=== PATIENT | male | born 1990 | race Caucasian/White ===

== ENCOUNTER 2022-07-09 11:09 | Outpatient (REF) | payer OTHER, SELFPAY ==
[2022-07-09 11:29] LABS: RBC Synovial Fluid 0.002 X10*6/uL
[2022-07-09 12:29] LABS: BF Shift QC OK YES; Lymphocytes Synovial Fluid 1 %; Monocytes Synovial Fluid 1 %; Neutrophils Synovial Fluid 98 %; Source Synovial Fluid RIGHT KNEE
[2022-07-09 23:54] LABS: Glucose Synovial Fluid 55 MG/DL
[2022-07-12 17:37] LABS: Lyme PCR Source SYNOVIAL FLUID; Lyme Synovial Fluid PCR NOT DETECTED (NOT DETECTED)
== END 2022-07-09 11:10 | disposition home or self-care (01) ==
LOC: HO.LNP 11:09
PROVIDERS: Visit Provider Student in an Organized Health Care Education/Training Program
DX: L40.50 Arthropathic psoriasis, unspecified (principal); M25.461 Effusion, right knee; M12.811 Other specific arthropathies, not elsewhere classified, right shoulder; Z79.899 Other long term (current) drug therapy
CPT/HCPCS: 20610; 82945; 87071; 87073; 87205; 87476; 89051; 89060

== ENCOUNTER 2022-07-14 11:17 | Outpatient (REF) | payer OTHER, SELFPAY ==
[2022-07-14 12:05] LABS: Basophils Percent Auto 0.3 % (0-2); Eosinophils Absolute Auto 0.2 X10*3/uL (0.0-0.4); Hematocrit 42.5 % (42.0-52.0); Hemoglobin 14.5 g/dl (14.0-18.0); Imm Gran Abs Auto 0.07 X10*3/uL (0.00-0.03); Imm Gran Pct Auto 0.5 % (0.0-0.4); Lymphocytes Absolute Auto 2.6 X10*3/uL (1.2-4.9); Lymphocytes Percent Auto 17.8 % (20-40); MANUAL DIFF FLAG SCAN; Mean Corpuscular HGB Conc 34.1 g/dl (31.0-36.0); Mean Corpuscular Hemoglobin 30.2 pg (27.0-33.0); Mean Corpuscular Volume 88.5 fL (80.0-98.0); Mean Platelet Volume 9.7 fL (9.4-12.4); Monocytes Absolute Auto 1.7 X10*3/uL (0.1-1.2); Monocytes Percent Auto 11.4 % (2-11); Neutrophils Absolute Auto 10.1 x10*3/uL (2.0-8.3); Platelet Count 518 X10*3/uL (160-400); SCAN SMEAR FLAG 1; White Blood Count 14.6 X10*3/uL (4.8-10.8)
[2022-07-14 12:25] LABS: SLIDE REVIEW VERIFIED
[2022-07-14 12:32] LABS: Alanine Aminotransferase 57 U/L (0-40); Albumin Level 4.6 g/dL (3.5-5.0); Alkaline Phosphatase 117 U/L (39-117); Anion Gap 16 (12-20); Aspartate Amino Transferase 18 U/L (5-37); Bilirubin Total 0.7 mg/dL (0.0-1.0); Blood Urea Nitrogen 17 mg/dL (9-16); C Reactive Protein 6.01 mg/dL (< or = 0.50); Carbon Dioxide 25 mmol/L (22-29); Chloride 101 mmol/L (96-108); Estimated Glomerular Filt Rate > 60; Glucose Random 92 mg/dL (60-115); Potassium 4.3 mmol/L (3.3-5.1); Sodium 138 mmol/L (135-145); Total Protein 8.7 g/dL (6.5-8.0)
[2022-07-14 13:01] LABS: HBc Num1 0.08 S/CO (0.00-0.79); HBsAGNum1 0.21 S/CO (0.00-0.99); Hepatitis B Core Antibody Nonreactive (Nonreactive); Hepatitis B Surface Antigen Negative (Negative); ~HepC Num1 0.19 S/CO (0.00-0.79); ~Hepatitis B Surface Antibody NONREACTIVE (Nonreactive); ~Hepatitis C Antibody Nonreactive (Nonreactive)
[2022-07-14 13:13] LABS: Erythrocyte Sedimentation Rate 77 MM/HR (0-15)
[2022-07-15 07:29] LABS: Hepatitis A Antibody IgM 0.12 Index (0-0.79); ~Hepatitis A Antibody IgM Nonreactive (Nonreactive)
[2022-07-16 04:51] LABS: Lyme Abs Screen <0.90 index
[2022-07-17 03:42] LABS: TS Negative Control Passed; TS Panel A 0; TS Panel B 0; TS Positive Control Passed; TSpotTB Negative (Negative)
== END 2022-07-14 11:18 | disposition home or self-care (01) ==
LOC: HO.LAB 11:17
PROVIDERS: PCP Physician Assistant; Visit Provider Student in an Organized Health Care Education/Training Program
DX: Z11.59 Encounter for screening for other viral diseases (principal); Z11.7 Encounter for testing for latent tuberculosis infection; L40.50 Arthropathic psoriasis, unspecified; M25.461 Effusion, right knee; Z79.899 Other long term (current) drug therapy
CPT/HCPCS: 36415; 80053; 85025; 85652; 86140; 86481; 86617; 86618; 86704; 86706; 86709; 86803; 87340

== ENCOUNTER 2022-11-17 10:25 | Outpatient (REF) | payer OTHER, SELFPAY ==
[2022-11-17 10:39] LABS: MANUAL DIFF FLAG NO
[2022-11-17 11:42] LABS: Basophils Percent Auto 0.3 % (0-2); Eosinophils Absolute Auto 0.3 X10*3/uL (0.0-0.4); Eosinophils Percent Auto 2.9 % (0-4); Hemoglobin 15.5 g/dl (14.0-18.0); Imm Gran Abs Auto 0.02 X10*3/uL (0.00-0.03); Imm Gran Pct Auto 0.2 % (0.0-0.4); Lymphocytes Percent Auto 23.1 % (20-40); Mean Corpuscular HGB Conc 33.7 g/dl (31.0-36.0); Mean Corpuscular Hemoglobin 29.4 pg (27.0-33.0); Mean Corpuscular Volume 87.3 fL (80.0-98.0); Mean Platelet Volume 10.3 fL (9.4-12.4); Monocytes Absolute Auto 0.8 X10*3/uL (0.1-1.2); Monocytes Percent Auto 8.6 % (2-11); Neutrophils Absolute Auto 5.7 x10*3/uL (2.0-8.3); Neutrophils Percent Auto 64.9 % (45-73); Platelet Count 314 X10*3/uL (160-400); Red Blood Count 5.27 X10*6/uL (4.60-5.80); Red Cell Distribution Width 12.6 % (11.0-16.0); White Blood Count 8.7 X10*3/uL (4.8-10.8)
[2022-11-17 12:18] LABS: Erythrocyte Sedimentation Rate 16 MM/HR (0-15)
[2022-11-17 12:19] LABS: Alanine Aminotransferase 36 U/L (0-40); Albumin Level 4.7 g/dL (3.5-5.0); Alkaline Phosphatase 109 U/L (39-117); Anion Gap 11 (12-20); Aspartate Amino Transferase 22 U/L (5-37); Bilirubin Total 0.6 mg/dL (0.0-1.0); Blood Urea Nitrogen 17 mg/dL (9-16); C Reactive Protein 0.45 mg/dL (< or = 0.50); Carbon Dioxide 29 mmol/L (22-29); Chloride 103 mmol/L (96-108); Estimated Glomerular Filt Rate > 60; Glucose Random 89 mg/dL (60-115); Potassium 4.7 mmol/L (3.3-5.1); Sodium 138 mmol/L (135-145); Total Protein 8.2 g/dL (6.5-8.0)
== END 2022-11-17 10:26 | disposition home or self-care (01) ==
LOC: HO.LAB 10:25
PROVIDERS: Visit Provider Student in an Organized Health Care Education/Training Program
DX: L40.50 Arthropathic psoriasis, unspecified (principal)
CPT/HCPCS: 36415; 80053; 85025; 85652; 86140

== ENCOUNTER → 2022-11-18 08:39 | Outpatient (BNVA) | payer OTHER, SELFPAY | PROVIDERS: Visit Provider Student in an Organized Health Care Education/Training Program | DX: L40.9 Psoriasis, unspecified (principal) ==

== ENCOUNTER 2023-06-14 10:23 | Outpatient (REF) | payer OTHER, SELFPAY ==
[2023-06-14 10:41] LABS: MANUAL DIFF FLAG NO
[2023-06-14 10:46] LABS: Basophils Percent Auto 0.4 % (0-2); Eosinophils Absolute Auto 0.3 X10*3/uL (0.0-0.4); Eosinophils Percent Auto 2.9 % (0-4); Hematocrit 42.2 % (42.0-52.0); Hemoglobin 14.5 g/dl (14.0-18.0); Imm Gran Abs Auto 0.05 X10*3/uL (0.00-0.03); Imm Gran Pct Auto 0.6 % (0.0-0.4); Lymphocytes Absolute Auto 2.2 X10*3/uL (1.2-4.9); Lymphocytes Percent Auto 24.1 % (20-40); Mean Corpuscular HGB Conc 34.4 g/dl (31.0-36.0); Mean Corpuscular Hemoglobin 30.1 pg (27.0-33.0); Mean Corpuscular Volume 87.6 fL (80.0-98.0); Mean Platelet Volume 9.8 fL (9.4-12.4); Monocytes Absolute Auto 0.8 X10*3/uL (0.1-1.2); Monocytes Percent Auto 8.8 % (2-11); Neutrophils Absolute Auto 5.7 x10*3/uL (2.0-8.3); Neutrophils Percent Auto 63.2 % (45-73); Platelet Count 286 X10*3/uL (160-400); Red Blood Count 4.82 X10*6/uL (4.60-5.80); Red Cell Distribution Width 12.3 % (11.0-16.0); White Blood Count 9.1 X10*3/uL (4.8-10.8)
[2023-06-14 11:11] LABS: Alanine Aminotransferase 32 U/L (0-40); Albumin Level 4.2 g/dL (3.5-5.0); Alkaline Phosphatase 104 U/L (39-117); Anion Gap 13 (12-20); Aspartate Amino Transferase 21 U/L (5-37); Bilirubin Total 0.6 mg/dL (0.0-1.0); Blood Urea Nitrogen 12 mg/dL (9-16); C Reactive Protein 0.38 mg/dL (< or = 0.50); Calcium 9.8 mg/dL (8.4-10.2); Carbon Dioxide 27 mmol/L (22-29); Chloride 105 mmol/L (96-108); Estimated Glomerular Filt Rate > 60; Glucose Random 110 mg/dL (60-115); Sodium 141 mmol/L (135-145); Total Protein 7.9 g/dL (6.5-8.0)
[2023-06-14 11:32] LABS: Erythrocyte Sedimentation Rate 16 MM/HR (0-15)
== END 2023-06-14 10:24 | disposition home or self-care (01) ==
LOC: HO.LAB 10:23
PROVIDERS: PCP Physician Assistant; Visit Provider Student in an Organized Health Care Education/Training Program
DX: L40.50 Arthropathic psoriasis, unspecified (principal); Z79.899 Other long term (current) drug therapy
CPT/HCPCS: 36415; 80053; 85025; 85652; 86140

== ENCOUNTER 2023-06-16 10:44 | Outpatient (AMB) | payer OTHER, SELFPAY ==
--- NOTE | 2023-06-16 10:48 | A.OFFVIS_ITS ---
Intake Vital Signs 06/16/23 10:53 Height 5 ft 10 in Weight 231 lb 0.711 oz BMI 33.1 BP 122/86 Blood Pressure Location Rt brachial Position Sitting Pulse 84 Pulse Source Pulse Oximeter Temp 97.8 F Temp Source Skin Pulse Oximetry (%) 97 Intake Visit Reasons: 4 mnts f/u - PsA Intake Note: Pt seen today for PsA follow up. Doing well Min[employer] Insulation Supervisor Required: No Accompanied by: Self / Same As Patient Allergies No Known Allergies Allergy (Verified 06/16/23 10:54) Medication List - Last Reconciled 06/16/23 by Mariely Sutton MD ibuprofen 600 mg PO Q6H PRN ixekizumab (Taltz Autoinjector) 80 mg subcut Q4W tacrolimus 0.1% 1 appl topical BID 3 months HPI HPI Comments History of Present Illness Details 33-year-old male with psoriasis and psoriatic arthritis presents for follow-up. Doing well overall with no joint pain or swelling, psoriasis rash is almost entirely cleared up. States that he significantly cut down on alcohol consumption. 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 He used to see Dr. Diaz at [place]. Was last seen last year. Patient was on Enbrel for his psoriatic arthritis which helped his arthritis but not his skin very much then he was started on Humira which worked beautifully for his skin and joints however it lost its efficacy then switched to Cimzia last year but he has not received it over the last 6 months as he did not have a cable tv installer. Currently patient is complaining of pain in his knees right more than left associated swelling as well as bilateral ankle pain, he has morning stiffness of his hands lasting around 2 hours difficulty gripping objects, he takes around 2000 mg of ibuprofen daily. He mentions having a couple of tick bites over the summer but no skin rashes associated with it His psoriasis also has been flaring, recently, he applies tacrolimus 0.1% topical ointment with some improvement. But he still has significant patches on his elbows, knees and intertriginous areas. He denies history of eye pain, blurry vision. He denies history of abdominal pain, blood in urine or stool. Denies family history of inflammatory bowel disease. [facility] Medical History High risk medication use Psoriasis Psoriatic arthritis Social History Household Members: Significant Other and Family Housing: Condominium Alcohol intake: former Patient Tobacco Use Status: Never used Tobacco e-Cigarette/Vaping Use: Never Used service: No Current occupational status: employed Current occupation: teacher Review of Systems Musc Denies arthralgias and Denies joint swelling Skin/Breast Denies rash Physical Exam Vital Signs: Last Vital Signs Temp 97.8 F 06/16/23 10:53 Pulse 84 06/16/23 10:53 BP 122/86 06/16/23 10:53 Pulse Ox 97 06/16/23 10:53 BMI result Body Mass Index 33.1 Const General: cooperative, healthy appearing and comfortable Resp Effort & Inspection: normal respiratory effort and able to speak in complete sentences Auscultation: clear to auscultation bilaterally Cardio Rate: regular rate Rhythm: regular rhythm Heart sounds: S1 normal heart sound present and S2 normal heart sound present Skin Other: Barely any psoriasis patches today Extrem Other: No synovitis today Assessment & Plan Assessment & Plan (1) Psoriatic arthritis: Comment: PsA diagnosed 2016.? Failed SSZ, MTX avoided due to alcohol use.? Humira started 01/09, improvement in both skin and joint manifestations but then the skin disease worsened in the fall of 2017, Enbrel in place of Humira 11/08. 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 He is in remission on Taltz. Labs normal. Continue Taltz 80 mg every 4 week. Can use ibuprofen for minor flares if needed Labs before next visit in 5 months (2) Psoriasis: Code(s): L40.9 - Psoriasis, unspecified Plan: Barely any psoriasis patches today. Continue Taltz (3) High risk medication use: Code(s): Z79.899 - Other predatory animal exterminator (current) drug therapy Plan: Discussed side effects of interleukin 17 inhibitors including infections & low risk of inflammatory bowel disease. Advised patient to seek medical care immediately at any sign of infection. Orders: Orders Comprehensive Met. Panel 5 Months L40.50 - Arthropathic psoriasis, unspecified C Reactive Protein 5 Months L40.50 - Arthropathic psoriasis, unspecified Complete Blood Count Auto Diff 5 Months L40.50 - Arthropathic psoriasis, unspecified Erythrocyte Sedimentation Rate 5 Months L40.50 - Arthropathic psoriasis, unspecified Coding Level of Care Code Est Pt Level 3 (47692) Diagnoses Psoriatic arthritis L40.50 Psoriasis L40.9 High risk medication use Z79.899
[2023-06-16 10:53] VITALS: BP 122/86; PULSE 84; TEMP 36.6; O2SAT 97; BMI 33.1
== END 2023-06-16 11:11 | disposition home or self-care (01) ==
PROVIDERS: Visit Provider Student in an Organized Health Care Education/Training Program
DX: L40.50 Arthropathic psoriasis, unspecified (principal); L40.9 Psoriasis, unspecified; Z79.899 Other long term (current) drug therapy
CPT/HCPCS: 99213

== ENCOUNTER → 2023-06-16 10:44 | Outpatient (BNVA) | payer OTHER, SELFPAY | PROVIDERS: Visit Provider Student in an Organized Health Care Education/Training Program ==

== ENCOUNTER 2023-12-04 10:02 | Outpatient (REF) | payer OTHER, SELFPAY ==
[2023-12-04 10:11] LABS: MANUAL DIFF FLAG NO
[2023-12-04 10:15] LABS: Basophils Percent Auto 0.4 % (0-2); Eosinophils Absolute Auto 0.2 X10*3/uL (0.0-0.4); Eosinophils Percent Auto 2.4 % (0-4); Hematocrit 44.9 % (42.0-52.0); Hemoglobin 15.1 g/dl (14.0-18.0); Imm Gran Abs Auto 0.03 X10*3/uL (0.00-0.03); Imm Gran Pct Auto 0.4 % (0.0-0.4); Lymphocytes Absolute Auto 2.1 X10*3/uL (1.2-4.9); Lymphocytes Percent Auto 25.6 % (20-40); Mean Corpuscular HGB Conc 33.6 g/dl (31.0-36.0); Mean Corpuscular Hemoglobin 29.5 pg (27.0-33.0); Mean Corpuscular Volume 87.9 fL (80.0-98.0); Mean Platelet Volume 9.5 fL (9.4-12.4); Monocytes Absolute Auto 0.8 X10*3/uL (0.1-1.2); Monocytes Percent Auto 10.3 % (2-11); Neutrophils Absolute Auto 4.9 x10*3/uL (2.0-8.3); Neutrophils Percent Auto 60.9 % (45-73); Platelet Count 300 X10*3/uL (160-400); Red Blood Count 5.11 X10*6/uL (4.60-5.80); Red Cell Distribution Width 12.5 % (11.0-16.0)
[2023-12-04 10:48] LABS: Alanine Aminotransferase 28 U/L (0-40); Albumin Level 4.3 g/dL (3.5-5.0); Alkaline Phosphatase 110 U/L (39-117); Anion Gap 14 (12-20); Aspartate Amino Transferase 22 U/L (5-37); Bilirubin Total 0.5 mg/dL (0.0-1.0); Blood Urea Nitrogen 11 mg/dL (9-16); C Reactive Protein 0.45 mg/dL (< or = 0.50); Calcium 10.2 mg/dL (8.4-10.2); Carbon Dioxide 28 mmol/L (22-29); Chloride 104 mmol/L (96-108); Estimated Glomerular Filt Rate > 60; Glucose Random 106 mg/dL (60-115); Potassium 4.5 mmol/L (3.3-5.1); Sodium 141 mmol/L (135-145); Total Protein 8.4 g/dL (6.5-8.0)
[2023-12-04 10:56] LABS: Erythrocyte Sedimentation Rate 19 MM/HR (0-15)
== END 2023-12-04 10:03 | disposition home or self-care (01) ==
LOC: HO.LAB 10:02
PROVIDERS: PCP Physician Assistant; Visit Provider Student in an Organized Health Care Education/Training Program
DX: L40.50 Arthropathic psoriasis, unspecified (principal)
CPT/HCPCS: 36415; 80053; 85025; 85652; 86140

== ENCOUNTER 2023-12-06 08:01 | Outpatient (AMB) | payer OTHER, SELFPAY ==
[2023-12-06 08:12] VITALS: BP 128/74; PULSE 60; TEMP 36.1; O2SAT 98; BMI 32.6
--- NOTE | 2023-12-06 08:12 | A.OFFVIS_ITS ---
Intake Vital Signs 12/06/23 08:12 Height 5 ft 10 in Weight 227 lb 1.218 oz BMI 32.6 BP 128/74 Blood Pressure Location Rt brachial Position Sitting Pulse 60 Pulse Source Pulse Oximeter Temp 97 F Temp Source Skin Pulse Oximetry (%) 98 Oxygen Delivery Method Room Air Intake Visit Reasons: PsA Intake Note: Pt last seen 06/16/23 presents today for follow up and test results. Tennis Player Required: No Accompanied by: Child Allergies No Known Allergies Allergy (Verified 12/06/23 08:16) Medication List - Last Reconciled 12/06/23 by Mariely Sutton MD ibuprofen 600 mg PO Q6H PRN ixekizumab (Taltz Autoinjector) 80 mg subcut Q4W roflumilast 0.3% (Zoryve) 1 appl topical DAILY tacrolimus 0.1% 1 appl topical BID 3 months HPI HPI Comments History of Present Illness Details 33-year-old male with psoriasis and psor iatic arthritis presents for follow-up. Doing well overall with no joint pain or swelling, recently he has been having more rashes particularly in the inside of his nose, eyelids, front part of his scalp, he has been following up with Dermatology and he was prescribed steroid creams and roflumilast cream, states that the rash on his eyelids and inside of his nose has not improved much. 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 He used to see Dr. Diaz at [place]. Was last seen last year. Patient was on Enbrel for his psoriatic arthritis which helped his arthritis but not his skin very much then he was started on Humira which worked beautifully for his skin and joints however it lost its efficacy then switched to Cimzia last year but he has not received it over the last 6 months as he did not have a apron worker. Currently patient is complaining of pain in his knees right more than left associated swelling as well as bilateral ankle pain, he has morning stiffness of his hands lasting around 2 hours difficulty gripping objects, he takes around 2000 mg of ibuprofen daily. He mentions having a couple of tick bites over the summer but no skin rashes associated with it His psoriasis also has been flaring, recently, he applies tacrolimus 0.1% topical ointment with some improvement. But he still has significant patches on his elbows, knees and intertriginous areas. He denies history of eye pain, blurry vision. He denies history of abdominal pain, blood in urine or stool. Denies family history of inflammatory bowel disease. [facility] Medical History High risk medication use Psoriatic arthritis Psoriasis Social History Household Members: Significant Other and Family Housing: Condominium Alcohol intake: former Patient Tobacco Use Status: Never used Tobacco e-Cigarette/Vaping Use: Never Used service: No Current occupational status: employed Current occupation: teacher Review of Systems Musc Denies arthralgias and Denies joint swelling Skin/Breast Reports rash Physical Exam Vital Signs: Last Vital Signs Temp 97 F 12/06/23 08:12 Pulse 60 12/06/23 08:12 BP 128/74 12/06/23 08:12 Pulse Ox 98 12/06/23 08:12 Oxygen Delivery Method Room Air 12/06/23 08:12 BMI result Body Mass Index 32.6 Const General: cooperative, healthy appearing and comfortable Resp Effort & Inspection: normal respiratory effort and able to speak in complete sentences Auscultation: clear to auscultation bilaterally Cardio Rate: regular rate Rhythm: regular rhythm Heart sounds: S1 normal heart sound present and S2 normal heart sound present Skin Other: Psoriasis rash on the area tear aspect of his scalp towards the left Pain rashes on the extensor aspect of his left elbow Few scaly and crusty lesions nasal mucosa Extrem Other: No synovitis today Assessment & Plan Assessment & Plan (1) Psoriatic arthritis: Comment: PsA diagnosed 2016.? Failed SSZ, MTX avoided due to alcohol use.? Humira started 01/09, improvement in both skin and joint manifestations but then the skin disease worsened in the fall of 2017, Enbrel in place of Humira 11/08. 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 He is in remission on Taltz. Labs normal. Continue Taltz 80 mg every 4 week. Can use ibuprofen for minor flares if needed Labs before next visit in 5 months (2) Psoriasis: Code(s): L40.9 - Psoriasis, unspecified Plan: Recently developed rashes on his scalp, follows with Dermatology and prescribed steroid creams and roflumilast cream with little improvement. He will be going back to Dermatology. (3) High risk medication use: Code(s): Z79.899 - Other ad terminal makeup operator (current) drug therapy Plan: Discussed side effects of interleukin 17 inhibitors including infections & low risk of inflammatory bowel disease. Advised patient to seek medical care immediately at any sign of infection. Plan I spent 26 minutes reviewing patient's chart, evaluating patient, ordering diagnostic workup, counseling patient and documenting in the chart Orders: Orders C Reactive Protein 5 Months L40.50 - Arthropathic psoriasis, unspecified Erythrocyte Sedimentation Rate 5 Months L40.50 - Arthropathic psoriasis, unspecified T Spot TB 5 Months Z11.7 - Encounter for testing for latent tuberculosis infection Complete Blood Count Auto Diff 5 Months L40.50 - Arthropathic psoriasis, unspecified Comprehensive Met. Panel 5 Months L40.50 - Arthropathic psoriasis, unspecified Hepatitis A,B,C Profile 5 Months Z11.59 - Encounter for screening for other viral diseases Coding Level of Care Code Est Pt Level 4 (12464) Diagnoses Psoriatic arthritis L40.50 Psoriasis L40.9 High risk medication use Z79.899
== END 2023-12-06 08:29 | disposition home or self-care (01) ==
PROVIDERS: Visit Provider Student in an Organized Health Care Education/Training Program
DX: L40.50 Arthropathic psoriasis, unspecified (principal); L40.9 Psoriasis, unspecified; Z79.899 Other long term (current) drug therapy
CPT/HCPCS: 99214

== ENCOUNTER → 2023-12-06 08:01 | Outpatient (BNVA) | payer OTHER, SELFPAY | PROVIDERS: Visit Provider Student in an Organized Health Care Education/Training Program ==

== ENCOUNTER 2024-05-20 08:55 | Outpatient (REF) | payer OTHER, SELFPAY ==
[2024-05-20 09:26] LABS: MANUAL DIFF FLAG NO
[2024-05-20 10:25] LABS: Basophils Absolute Auto 0.1 X10*3/uL (0.0-0.2); Basophils Percent Auto 0.6 % (0-2); Eosinophils Absolute Auto 0.2 X10*3/uL (0.0-0.4); Hematocrit 42.4 % (42.0-52.0); Hemoglobin 14.8 g/dl (14.0-18.0); Imm Gran Abs Auto 0.02 X10*3/uL (0.00-0.03); Imm Gran Pct Auto 0.2 % (0.0-0.4); Lymphocytes Absolute Auto 1.8 X10*3/uL (1.2-4.9); Mean Corpuscular HGB Conc 34.9 g/dl (31.0-36.0); Mean Corpuscular Hemoglobin 30.4 pg (27.0-33.0); Mean Corpuscular Volume 87.1 fL (80.0-98.0); Mean Platelet Volume 10.3 fL (9.4-12.4); Monocytes Absolute Auto 0.9 X10*3/uL (0.1-1.2); Monocytes Percent Auto 9.9 % (2-11); Neutrophils Absolute Auto 6.1 x10*3/uL (2.0-8.3); Neutrophils Percent Auto 67.3 % (45-73); Platelet Count 308 X10*3/uL (160-400); Red Blood Count 4.87 X10*6/uL (4.60-5.80); Red Cell Distribution Width 12.4 % (11.0-16.0)
[2024-05-20 10:59] LABS: Alanine Aminotransferase 24 U/L (0-40); Albumin Level 4.3 g/dL (3.5-5.0); Alkaline Phosphatase 99 U/L (39-117); Anion Gap 17 (12-20); Aspartate Amino Transferase 18 U/L (5-37); Bilirubin Total 0.6 mg/dL (0.0-1.0); Blood Urea Nitrogen 10 mg/dL (9-16); C Reactive Protein 0.59 mg/dL (< or = 0.50); Calcium 9.2 mg/dL (8.4-10.2); Carbon Dioxide 25 mmol/L (22-29); Chloride 106 mmol/L (96-108); Estimated Glomerular Filt Rate > 60; Glucose Random 107 mg/dL (60-115); Potassium 3.8 mmol/L (3.3-5.1); Sodium 144 mmol/L (135-145); Total Protein 8.1 g/dL (6.5-8.0)
[2024-05-20 11:13] LABS: Erythrocyte Sedimentation Rate 17 MM/HR (0-15)
[2024-05-22 03:43] LABS: HBS Num1 1.36 mIU/mL (0-7.99); HBc Num1 0.14 S/CO (0.00-0.79); Hepatitis A Antibody IgM 0.11 Index (0-0.79); Hepatitis B Core Antibody Nonreactive (Nonreactive); Hepatitis B Surface Antigen Negative (Negative); ~HepC Num1 0.13 S/CO (0.00-0.79); ~Hepatitis A Antibody IgM Nonreactive (Nonreactive); ~Hepatitis B Surface Antibody NONREACTIVE (Nonreactive); ~Hepatitis C Antibody Nonreactive (Nonreactive)
== END 2024-05-20 08:56 | disposition home or self-care (01) ==
LOC: HO.LAB 08:55
PROVIDERS: PCP Physician Assistant; Visit Provider Student in an Organized Health Care Education/Training Program
DX: L40.50 Arthropathic psoriasis, unspecified (principal); Z11.59 Encounter for screening for other viral diseases
CPT/HCPCS: 36415; 80053; 85025; 85652; 86140; 86481; 86704; 86706; 86709; 86803; 87340

== ENCOUNTER 2024-05-22 08:56 | Outpatient (AMB) | payer OTHER, SELFPAY ==
--- NOTE | 2024-05-22 08:58 | A.OFFVIS_ITS ---
Vital Signs 05/22/24 09:01 Height 5 ft 10 in Weight 221 lb 12.56 oz BMI 31.8 BP 124/84 Blood Pressure Location Rt brachial Position Sitting Pulse 82 Pulse Source Pulse Oximeter Pulse Oximetry (%) 92 Oxygen Delivery Method Room Air Intake Visit Reasons: PsA/LM Intake Note: Patient presents for PsA. Allergies No Known Allergies Allergy (Verified 05/22/24 09:01) Medication List - Last Reconciled 05/22/24 by Mariely Sutton MD ibuprofen 600 mg PO Q6H PRN roflumilast 0.3% (Zoryve) 1 appl topical DAILY tacrolimus 0.1% 1 appl topical BID 3 months Taltz Autoinjector (ixekizumab) 80 mg subcut Q4W NS HPI Comments Details: 33-year-old male with psoriasis and psoriatic arthritis presents for follow-up. On Taltz regularly. States that the rashes on her scalp improved with a steroid cream. He continues to have intermittent flare-ups of psoriasis affecting the inside of his nose. It was treated with an cream. He denies any joint pain or swelling. Any morning stiffness. Overall doing great. No complaints today. 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 He used to see Dr. Diaz at [place]. Was last seen last year. Patient was on Enbrel for his psoriatic arthritis which helped his arthritis but not his skin very much then he was started on Humira which worked beautifully for his skin and joints however it lost its efficacy then switched to Cimzia last year but he has not received it over the last 6 months as he did not have a radiagraph operator. Currently patient is complaining of pain in his knees right more than left associated swelling as well as bilateral ankle pain, he has morning stiffness of his hands lasting around 2 hours difficulty gripping objects, he takes around 2000 mg of ibuprofen daily. He mentions having a couple of tick bites over the summer but no skin rashes associated with it His psoriasis also has been flaring, recently, he applies tacrolimus 0.1% topical ointment with some improvement. But he still has significant patches on his elbows, knees and intertriginous areas. He denies history of eye pain, blurry vision. He denies history of abdominal pain, blood in urine or stool. Denies family history of inflammatory bowel disease. [facility] Medical History High risk medication use Psoriatic arthritis Psoriasis Social History Household Members: Significant Other and Family Housing: Condominium Alcohol intake: former Patient Tobacco Use Status: Never used Tobacco e-Cigarette/Vaping Use: Never Used service: No Current occupational status: employed Current occupation: teacher Review of Systems ENT Details: Nasal lesions Musc Denies arthralgias and Denies joint swelling Skin/Breast Denies rash Physical Exam Vital Signs: Last Vital Signs Pulse 82 05/22/24 09:01 BP 124/84 05/22/24 09:01 Pulse Ox 92 05/22/24 09:01 Oxygen Delivery Method Room Air 05/22/24 09:01 BMI result Body Mass Index 31.8 Const General: cooperative, healthy appearing and comfortable HEENT Other: Crusty lesions both nares Resp Effort & Inspection: normal respiratory effort and able to speak in complete sentences Auscultation: clear to auscultation bilaterally Cardio Rate: regular rate Rhythm: regular rhythm Heart sounds: S1 normal heart sound present and S2 normal heart sound present Skin Other: No psoriasis patches noted on skin Extrem Other: No synovitis today Assessment & Plan Assessment & Plan (1) Psoriatic arthritis: Comment: PsA diagnosed 2016.? Failed SSZ, MTX avoided due to alcohol use.? Humira started 01/09, improvement in both skin and joint manifestations but then the skin disease worsened in the fall of 2017, Enbrel in place of Humira 11/08. 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 He is in remission on Taltz. Continue Taltz 80 mg every 4 week. Can use ibuprofen for minor flares if needed Labs before next visit in 6 months (2) Psoriasis: Code(s): L40.9 - Psoriasis, unspecified Category: Medical Plan: Overall well controlled. Continues to have intermittent rashes on his scalp and some crusting lesions in the nasal mucosa. Controlled with steroid creams as needed (3) High risk medication use: Code(s): Z79.899 - Other detention (current) drug therapy Category: Medical Plan: Discussed side effects of interleukin 17 inhibitors including infections & low risk of inflammatory bowel disease. Advised patient to seek medical care immediately at any sign of infection. Plan I spent 26 minutes reviewing patient's chart, evaluating patient, ordering diagnostic workup, counseling patient and documenting in the chart Orders: Orders Comprehensive Met. Panel 6 Months L40.50 - Arthropathic psoriasis, unspecified C Reactive Protein 6 Months L40.50 - Arthropathic psoriasis, unspecified Complete Blood Count Auto Diff 6 Months L40.50 - Arthropathic psoriasis, unspecified Erythrocyte Sedimentation Rate 6 Months L40.50 - Arthropathic psoriasis, unspecified Coding Level of Care Code Est Pt Level 4 (57673) Diagnoses Psoriatic arthritis L40.50 Psoriasis L40.9 High risk medication use Z79.899
[2024-05-22 09:01] VITALS: BP 124/84; PULSE 82; O2SAT 92; BMI 31.8
== END 2024-05-22 09:12 | disposition home or self-care (01) ==
PROVIDERS: Visit Provider Student in an Organized Health Care Education/Training Program
DX: L40.50 Arthropathic psoriasis, unspecified (principal); L40.9 Psoriasis, unspecified; Z79.899 Other long term (current) drug therapy
CPT/HCPCS: 99214

== ENCOUNTER → 2024-05-22 08:56 | Outpatient (BNVA) | payer OTHER, SELFPAY | PROVIDERS: Visit Provider Student in an Organized Health Care Education/Training Program ==

== ENCOUNTER 2024-11-17 08:58 | Outpatient (REF) | payer OTHER, SELFPAY ==
[2024-11-17 09:50] LABS: Basophils Percent Auto 0.4 % (0-2); Eosinophils Absolute Auto 0.2 X10*3/uL (0.0-0.4); Eosinophils Percent Auto 2.3 % (0-4); Hematocrit 44.2 % (42.0-52.0); Hemoglobin 15.4 g/dl (14.0-18.0); Imm Gran Abs Auto 0.03 X10*3/uL (0.00-0.03); Imm Gran Pct Auto 0.3 % (0.0-0.4); Lymphocytes Absolute Auto 2.4 X10*3/uL (1.2-4.9); Lymphocytes Percent Auto 26.8 % (20-40); Mean Corpuscular HGB Conc 34.8 g/dl (31.0-36.0); Mean Corpuscular Hemoglobin 30.3 pg (27.0-33.0); Mean Corpuscular Volume 86.8 fL (80.0-98.0); Mean Platelet Volume 10.5 fL (9.4-12.4); Monocytes Absolute Auto 0.8 X10*3/uL (0.1-1.2); Monocytes Percent Auto 9.4 % (2-11); Neutrophils Absolute Auto 5.4 x10*3/uL (2.0-8.3); Neutrophils Percent Auto 60.8 % (45-73); Red Blood Count 5.09 X10*6/uL (4.60-5.80); Red Cell Distribution Width 12.4 % (11.0-16.0)
[2024-11-17 09:54] LABS: Platelet Count 263 X10*3/uL (160-400)
[2024-11-17 10:10] LABS: Alanine Aminotransferase 29 U/L (0-40); Albumin Level 4.2 g/dL (3.5-5.0); Alkaline Phosphatase 89 U/L (39-117); Anion Gap 12 (12-20); Aspartate Amino Transferase 28 U/L (5-37); Bilirubin Total 0.5 mg/dL (0.0-1.0); Blood Urea Nitrogen 10 mg/dL (9-16); C Reactive Protein 0.23 mg/dL (< or = 0.50); Calcium 9.4 mg/dL (8.4-10.2); Carbon Dioxide 25 mmol/L (22-29); Chloride 104 mmol/L (96-108); Estimated Glomerular Filt Rate > 60; Glucose Random 106 mg/dL (60-115); Potassium 4.1 mmol/L (3.3-5.1); Sodium 137 mmol/L (135-145); Total Protein 8.2 g/dL (6.5-8.0)
[2024-11-17 10:20] LABS: Erythrocyte Sedimentation Rate 12 MM/HR (0-15)
[2024-11-20 09:09] LABS: TS Negative Control Passed; TS Panel A 0; TS Panel B 0; TS Positive Control Passed; TSpotTB Negative (Negative)
== END 2024-11-17 08:59 | disposition home or self-care (01) ==
LOC: HO.LAB 08:58
PROVIDERS: PCP Physician Assistant; Visit Provider Student in an Organized Health Care Education/Training Program
DX: L40.50 Arthropathic psoriasis, unspecified (principal); Z79.899 Other long term (current) drug therapy; Z11.7 Encounter for testing for latent tuberculosis infection
CPT/HCPCS: 36415; 80053; 85025; 85652; 86140; 86481

== ENCOUNTER 2024-11-20 07:48 | Outpatient (AMB) | payer OTHER, SELFPAY ==
--- NOTE | 2024-11-20 07:51 | MHC.OFFVIS ---
Vital Signs 11/20/24 07:53 Height 5 ft 10 in Weight 223 lb 12.307 oz BMI 32.1 BP 140/100 H Blood Pressure Location Rt brachial Position Sitting Pulse 90 Pulse Source Pulse Oximeter Pulse Oximetry (%) 98 Oxygen Delivery Method Room Air Intake Visit Reasons: PsA Intake Note: Patient presents for PsA. Allergies No Known Allergies Allergy (Verified 11/20/24 07:53) Medication List - Last Reconciled 11/20/24 by Mariely Sutton MD ibuprofen 600 mg PO Q6H PRN roflumilast 0.3% (Zoryve) 1 appl topical DAILY tacrolimus 0.1% 1 appl topical BID 3 months Taltz Autoinjector (ixekizumab) 80 mg subcut Q4W NS HPI Comments Details: 34-year-old male with psoriasis and psoriatic arthritis presents for follow-up. On Taltz regularly. He continues to have intermittent psoriasis patches, currently he has been having a mild patch on the left side of his scalp and a rash on his belly button. Otherwise doing well. No joint pain swelling or stiffness. 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 He used to see Dr. Diaz at [place]. Was last seen last year. Patient was on Enbrel for his psoriatic arthritis which helped his arthritis but not his skin very much then he was started on Humira which worked beautifully for his skin and joints however it lost its efficacy then switched to Cimzia last year but he has not received it over the last 6 months as he did not have a sterile processing manager. Currently patient is complaining of pain in his knees right more than left associated swelling as well as bilateral ankle pain, he has morning stiffness of his hands lasting around 2 hours difficulty gripping objects, he takes around 2000 mg of ibuprofen daily. He mentions having a couple of tick bites over the summer but no skin rashes associated with it His psoriasis also has been flaring, recently, he applies tacrolimus 0.1% topical ointment with some improvement. But he still has significant patches on his elbows, knees and intertriginous areas. He denies history of eye pain, blurry vision. He denies history of abdominal pain, blood in urine or stool. Denies family history of inflammatory bowel disease. [facility] Medical History High risk medication use Psoriatic arthritis Psoriasis Social History Household Members: Significant Other and Family Housing: Condominium Alcohol intake: former Patient Tobacco Use Status: Never used Tobacco e-Cigarette/Vaping Use: Never Used service: No Current occupational status: employed Current occupation: teacher Review of Systems Musc Denies arthralgias, Denies joint swelling and Denies stiffness Skin/Breast Reports rash Physical Exam Vital Signs: Last Vital Signs Pulse 90 11/20/24 07:53 BP 140/100 H 11/20/24 07:53 Pulse Ox 98 11/20/24 07:53 Oxygen Delivery Method Room Air 11/20/24 07:53 BMI result Body Mass Index 32.1 Const General: cooperative, healthy appearing and comfortable Nutritional Appearance: obese Orientation/consciousness: patient oriented x3 Limitations: no limitations HEENT Head: Yes normocephalic and Yes atraumatic Mouth: moist mucous membranes Resp Effort & Inspection: normal respiratory effort and able to speak in complete sentences Auscultation: clear to auscultation bilaterally Cardio Rate: regular rate Rhythm: regular rhythm Skin Other: Very subtle psoriasis patch on the left side of his scalp anteriorly Psoriasis rash on umbilicus Neuro General: patient oriented x3 Extrem Other: No synovitis today Assessment & Plan Assessment & Plan (1) Psoriatic arthritis: Comment: PsA diagnosed 2016.? Failed SSZ, MTX avoided due to alcohol use.? Humira started 01/09, improvement in both skin and joint manifestations but then the skin disease worsened in the fall of 2017, Enbrel in place of Humira 11/08. 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 His inflammatory arthritis is in remission on Taltz. Continue Taltz 80 mg every 4 week. Labs before next visit in 1 year. Follow-up earlier if needed (2) Psoriasis: Code(s): L40.9 - Psoriasis, unspecified Category: Medical Plan: Overall well controlled. Continues to have intermittent rashes on his scalp. He follows up regularly with horse trader. Symptoms overall well controlled with topicals (3) High risk medication use: Code(s): Z79.899 - Other magnetic tester (current) drug therapy Category: Medical Plan: Discussed side effects of interleukin 17 inhibitors including infections & low risk of inflammatory bowel disease. Advised patient to seek medical care immediately at any sign of infection. Plan I spent 26 minutes reviewing patient's chart, evaluating patient, ordering diagnostic workup, counseling patient and documenting in the chart Orders: Orders Complete Blood Count Auto Diff 1 Year L40.50 - Arthropathic psoriasis, unspecified C Reactive Protein 1 Year L40.50 - Arthropathic psoriasis, unspecified Comprehensive Met. Panel 1 Year L40.50 - Arthropathic psoriasis, unspecified Erythrocyte Sedimentation Rate 1 Year L40.50 - Arthropathic psoriasis, unspecified Hepatitis A,B,C Profile 1 Year Z11.59 - Encounter for screening for other viral diseases T Spot TB 1 Year Z11.7 - Encounter for testing for latent tuberculosis infection Coding Level of Care Code Est Pt Level 4 (94620) Complex EM visit Add On G2211 Diagnoses Psoriatic arthritis L40.50 Psoriasis L40.9 High risk medication use Z79.899
[2024-11-20 07:53] VITALS: BP 140/100; PULSE 90; O2SAT 98; BMI 32.1
== END 2024-11-20 08:09 | disposition home or self-care (01) ==
PROVIDERS: Visit Provider Student in an Organized Health Care Education/Training Program
DX: L40.50 Arthropathic psoriasis, unspecified (principal); L40.9 Psoriasis, unspecified; Z79.899 Other long term (current) drug therapy
CPT/HCPCS: 99214

== ENCOUNTER → 2024-11-20 07:48 | Outpatient (BNVA) | payer OTHER, SELFPAY | PROVIDERS: Visit Provider Student in an Organized Health Care Education/Training Program ==

== ENCOUNTER 2025-08-31 15:25 | Outpatient (REF) | payer OTHER, SELFPAY ==
[2025-08-31 15:37] LABS: MANUAL DIFF FLAG NO
[2025-08-31 15:53] LABS: Hematocrit 40.4 % (42.0-52.0); Hemoglobin 14.0 g/dl (14.0-18.0); Imm Gran Abs Auto 0.02 X10*3/uL (0.00-0.03); Imm Gran Pct Auto 0.2 % (0.0-0.4); Lymphocytes Absolute Auto 2.5 X10*3/uL (1.2-4.9); Mean Corpuscular HGB Conc 34.7 g/dl (31.0-36.0); Mean Corpuscular Hemoglobin 30.4 pg (27.0-33.0); Mean Corpuscular Volume 87.6 fL (80.0-98.0); NRBC Abs Auto 0.000 X10*3/uL (0.0-0.012); NRBC Pct Auto 0.0 /100WBC (0.0-0.2); Platelet Count 307 X10*3/uL (160-400); Red Blood Count 4.61 X10*6/uL (4.60-5.80); White Blood Count 8.8 X10*3/uL (4.8-10.8)
[2025-08-31 16:31] LABS: Alanine Aminotransferase 30 U/L (0-40); Albumin Level 4.6 g/dL (3.5-5.0); Anion Gap 10 (12-20); Aspartate Amino Transferase 26 U/L (5-37); Blood Urea Nitrogen 12 mg/dL (9-16); Calcium 9.5 mg/dL (8.4-10.2); Carbon Dioxide 30 mmol/L (22-29); Chloride 105 mmol/L (96-108); Estimated Glomerular Filt Rate > 60; Potassium 4.2 mmol/L (3.3-5.1); Sodium 141 mmol/L (135-145); Total Protein 7.9 g/dL (6.5-8.0)
[2025-08-31 16:43] LABS: Alkaline Phosphatase 103 U/L (39-117)
[2025-09-01 08:53] LABS: HBS Num1 0.43 mIU/mL (0-7.99); HBc Num1 0.17 S/CO (0.00-0.79); HBsAGNum1 0.49 S/CO (0.00-0.99); Hepatitis A Antibody IgM 0.32 Index (0-0.79); Hepatitis B Surface Antigen Negative (Negative); ~HepC Num1 0.08 S/CO (0.00-0.79); ~Hepatitis A Antibody IgM Nonreactive (Nonreactive); ~Hepatitis B Surface Antibody NONREACTIVE (Nonreactive); ~Hepatitis C Antibody Nonreactive (Nonreactive)
[2025-09-03 11:24] LABS: TS Negative Control Passed; TS Panel A 0; TS Panel B 0; TS Positive Control Passed; TSpotTB Negative (Negative)
== END 2025-08-31 15:26 | disposition home or self-care (01) ==
LOC: HO.LAB 15:25
PROVIDERS: PCP Physician Assistant; Visit Provider Student in an Organized Health Care Education/Training Program
DX: Z11.59 Encounter for screening for other viral diseases (principal); Z11.1 Encounter for screening for respiratory tuberculosis; L40.50 Arthropathic psoriasis, unspecified
CPT/HCPCS: 36415; 80053; 85025; 85652; 86140; 86481; 86704; 86706; 86709; 86803; 87340